=== PATIENT | female | born 1980 | race Caucasian/White ===

== ENCOUNTER 2020-06-03 16:48 | Inpatient (IN) | payer OTHER ==
[2020-06-03 18:18] LABS: HEMOGLOBIN 11.3 gm/dl (12.3-15.3); RED BLOOD COUNT 4.16 M/UL (4.00-5.10); WHITE BLOOD COUNT 7.8 K/UL (4.5-11.0)
[2020-06-04] MEDS ORDERED: DOCUSATE SODIU100 MG PO (20:47)
[2020-06-04] MEDS ORDERED: IBUPROFEN600 MG PO (20:47)
[2020-06-05 06:39] LABS: HEMOGLOBIN 9.2 gm/dl (12.3-15.3)
== END 2020-06-06 17:07 | disposition home or self-care (01) | DRG 805 ==
LOC: GENOP 16:48 → OB 17:34
PROVIDERS: Obstetrics & Gynecology; ADMIT Obstetrics & Gynecology
PROC: 10E0XZZ Delivery of Products of Conception, External Approach (ICD-10-PCS; principal; 2020-06-04)
PROC: 10907ZC Drainage of Amniotic Fluid, Therapeutic from Products of Conception, Via Natural or Artificial Opening (ICD-10-PCS; 2020-06-04)
PROC: 3E033VJ Introduction of Other Hormone into Peripheral Vein, Percutaneous Approach (ICD-10-PCS; 2020-06-04)
PROC: 0HQ9XZZ Repair Perineum Skin, External Approach (ICD-10-PCS; 2020-06-04)
PROC: 8E0ZXY6 Isolation (ICD-10-PCS; 2020-06-04)
DX: O13.4 Gestational [pregnancy-induced] hypertension without significant proteinuria, complicating childbirth (principal); U07.1 COVID-19; Z37.0 Single live birth; O98.52 Other viral diseases complicating childbirth; O98.82 Other maternal infectious and parasitic diseases complicating childbirth; O24.429 Gestational diabetes mellitus in childbirth, unspecified control; O70.0 First degree perineal laceration during delivery; B95.1 Streptococcus, group B, as the cause of diseases classified elsewhere; Z3A.37 37 weeks gestation of pregnancy
CPT/HCPCS: 36415; 81001; 82800; 82962; 85014; 85018; 85025; J2405; J2590; J3010; J7030; J7120; U0003